=== PATIENT | male | born 1965 | race Caucasian/White ===

== ENCOUNTER 2016-08-08 09:55 | Emergency (ER) | payer BC, OTHER ==
[~2016-08-08] VITALS: Ht 185.4 cm; Wt 99.8 kg
[2016-08-08] MEDS ORDERED: FISH OIL 1,001000 M2 PO (10:13)
[2016-08-08] MEDS ORDERED: LIPITOR10 MG PO (10:13)
[2016-08-08] MEDS ORDERED: PRILOSEC OTC20 MG PO (10:13)
[2016-08-08] MEDS ORDERED: IBUPROFEN 400400 M2 PO (10:14)
[2016-08-08] MEDS ORDERED: ASPIR 8181 M1 PO (10:14)
[2016-08-08 10:49] LABS: PLATELET COUNT 165 thou/uL (150-400)
[2016-08-08 10:50] LABS: HEMATOCRIT 42.6 % (42.0-52.0); HEMOGLOBIN 15.4 gm/dL (14.0-18.0); MCH 32.7 pg (26.0-34.0); MCHC 36.1 % (28.0-37.0); MCV 90.7 fL (80.0-100.0); RDW 12.9 % (10.5-14.5); WBC 7.9 thou/uL (4.0-11.0)
[2016-08-08 11:06] LABS: MANUAL DIFF YES
[2016-08-08 11:11] LABS: CALCIUM 8.8 mg/dL (8.5-10.1); POTASSIUM 3.5 mmol/L (3.5-5.1)
[2016-08-08 11:19] LABS: ALBUMIN 3.5 g/dL (3.4-5.0); DIRECT BILIRUBIN 0.3 mg/dL (<0.1-0.3); TOTAL BILIRUBIN 1.2 mg/dL (<0.1-1.0); TOTAL PROTEIN 7.4 g/dL (6.4-8.2)
[2016-08-08 11:33] LABS: ABSOLUTE NEUTROPHILS 4.7 thou/uL (1.4-8.2); ATYPICAL LYMPHS 2 %; PLATELET ESTIMATE NORMAL; TOTAL CELL COUNT 100; TOXIC GRANULATION SLIGHT
[2016-08-08] MEDS ORDERED: HYDROCODONE-AP1 EAC6 PO (13:22)
[2016-08-08] MEDS ORDERED: CIPRO500 MG PO (13:22)
[2016-08-08] MEDS ORDERED: FLAGYL500 MG PO (13:22)
[2016-08-08 13:27] LABS: URINE BILIRUBIN NEGATIVE (Negative); URINE BLOOD NEGATIVE (Negative); URINE COLOR YELLOW; URINE GLUCOSE-RANDOM* NEGATIVE (Negative); URINE KETONES NEGATIVE (Negative); URINE NITRITE NEGATIVE (Negative); URINE PROTEIN (DIPSTICK) NEGATIVE (Negative); URINE UROBILINOGEN 0.2 E.U./dl (0.2-1.0)
[2016-08-08 13:33] VITALS: BP 149/86
== END 2016-08-08 13:34 | disposition home or self-care (01) ==
LOC: ER 09:55
PROVIDERS: Nurse Practitioner
DX: K52.9 Noninfective gastroenteritis and colitis, unspecified (principal); F17.210 Nicotine dependence, cigarettes, uncomplicated; F10.99 Alcohol use, unspecified with unspecified alcohol-induced disorder; Z88.0 Allergy status to penicillin; E78.00 Pure hypercholesterolemia, unspecified

== ENCOUNTER → 2020-03-29 | Outpatient (CLI) | payer BC, OTHER ==
[~2020-03-29] MED LIST: ASPIR 8181 M1 PO; CIPRO500 MG PO; FISH OIL 1,001000 M2 PO; FLAGYL500 MG PO; HYDROCODONE-AP1 EAC6 PO; IBUPROFEN 400400 M2 PO; LIPITOR10 MG PO; PRILOSEC OTC20 MG PO
== END ==
LOC: LAB 14:56
PROVIDERS: ATTEND Internal Medicine Cardiovascular Disease
DX: Z01.812 Encounter for preprocedural laboratory examination (principal); Z20.828 Contact with and (suspected) exposure to other viral communicable diseases

== ENCOUNTER → 2020-05-09 | Outpatient (CLI) | payer OTHER | LOC: CAT 10:40 | PROVIDERS: ATTEND Internal Medicine Cardiovascular Disease | DX: Z13.6 Encounter for screening for cardiovascular disorders (principal); I25.10 Atherosclerotic heart disease of native coronary artery without angina pectoris; E78.00 Pure hypercholesterolemia, unspecified ==

== ENCOUNTER → 2020-07-25 | Outpatient (CLI) | payer BC, OTHER | LOC: SJCVCIMAG 06-13 09:29 | PROVIDERS: ATTEND Internal Medicine Cardiovascular Disease | DX: E78.1 Pure hyperglyceridemia (principal); E78.2 Mixed hyperlipidemia; I10 Essential (primary) hypertension; F17.200 Nicotine dependence, unspecified, uncomplicated; Z82.49 Family history of ischemic heart disease and other diseases of the circulatory system ==

== ENCOUNTER 2020-08-06 01:50 | Emergency (ER) | payer BC, OTHER ==
[~2020-08-06] VITALS: Ht 185.4 cm; Wt 102.1 kg
[2020-08-06 01:53] VITALS: BP 149/79
[2020-08-06] MEDS ORDERED: VASCEPA1 GM PO (02:06)
[2020-08-06 02:16] LABS: ABSOLUTE NEUTROPHILS 2.7 thou/uL (1.4-8.2); BASOPHILS 0.4 % (0.0-2.0); EOSINOPHILS 2.8 % (0.0-3.0); HEMATOCRIT 46.4 % (42.0-52.0); LYMPHOCYTES 51.6 % (24.0-44.0); MCH 32.7 pg (26.0-34.0); MCHC 34.5 g/dL (28.0-37.0); MONOCYTES 7.3 % (1.0-8.0); PLATELET COUNT 172 thou/uL (150-400); POLYS 37.9 % (36.0-66.0); RBC 4.89 mil/uL (4.50-6.00); RDW 12.7 % (10.5-14.5)
[2020-08-06 02:30] LABS: ANION GAP 12 mmol/L (7-16); BUN 18 mg/dL (7-18); CALCIUM 9.5 mg/dL (8.5-10.1); CHLORIDE 101 mmol/L (98-107); CO2 26 mmol/L (21-32); CREATININE 1.2 mg/dL (0.7-1.3); GLUCOSE 124 mg/dL (74-106); SODIUM 139 mmol/L (136-145)
[2020-08-06 02:32] LABS: POTASSIUM 3.9 mmol/L (3.5-5.1)
[2020-08-06 02:40] LABS: ALBUMIN 4.6 g/dL (3.4-5.0); SGOT 42 U/L (15-37); SGPT 80 U/L (30-65); TOTAL BILIRUBIN 0.7 mg/dL (0.2-1.0); TOTAL PROTEIN 8.4 g/dL (6.4-8.2); TROPONIN-I <0.06 ng/mL (<0.06)
--- NOTE | 2020-08-06 07:21 | EKG ---
[place] [address] [facility] [place] [address] ELECTROCARDIOGRAM REPORT Name: HUNTERABNER ALEX Room #: DEP MAREN Da Silva#: [id number] Admission: 08/06/20 Attend Phys: Discharge: 08/06/20 Date of : 61 Report #: [id number] [facility] ED Test Date: 2020-08-06 Test Time: 01:58:46 Pat Name: ABNER HARRISON Department: Room: Gender: M Keg Header: [place] : 1965 Requested By: Abner Bolden Order Number: [id number] MD: Murali Hoyos Measurements Intervals [place] Rate: 69 P: RI: QRS: 2 QRSD: 103 T: 224 QT: 414 QTc: 444 Interpretive Statements Sinus rhythm Nonspecific T abnormalities, inferior leads No previous ECG available for comparison Electronically Signed On 08-06-2020 7:21:23 [employer] by Murali Hoyos [email or web address] <ELECTRONICALLY SIGNED> By: Murali Hoyos MD, [facility] 08/06/20720 [id number] Murali Hoyos MD, FACC /EPI
== END 2020-08-06 03:06 | disposition home or self-care (01) ==
LOC: ER 01:50
PROVIDERS: Emergency Medicine
DX: R07.9 Chest pain, unspecified (principal); E78.5 Hyperlipidemia, unspecified; F17.210 Nicotine dependence, cigarettes, uncomplicated; Z79.82 Long term (current) use of aspirin; Z79.1 Long term (current) use of non-steroidal anti-inflammatories (NSAID); Z79.899 Other long term (current) drug therapy; Z88.0 Allergy status to penicillin; Z20.828 Contact with and (suspected) exposure to other viral communicable diseases